=== PATIENT | male | born 1970 | race African-American/Black ===

== ENCOUNTER 2018-07-27 12:43 | Emergency (ER) | payer MEDICAID ==
[~2018-07-27] VITALS: Ht 177.8 cm; Wt 83.9 kg
[2018-07-27 13:27] VITALS: BP 116/83
[2018-07-27] MEDS ORDERED: SODIUM CHLORIDE 0.9% 1,000 ML IV ONE (13:30)
[2018-07-27 14:41] LABS: HEMATOCRIT. 40.5 % (42.0-52.0); HEMOGLOBIN. 13.4 g/dL (14.0-18.0); MEAN CORPUSCULAR HEMOGLOBIN 29.3 pg (28.0-32.0); MEAN CORPUSCULAR VOLUME 88.4 fL (80.0-94.0); MEAN PLATELET VOLUME 7.6 fl (7.4-10.4); PLATELET 564 x1000/uL (130-400); RED BLOOD CELL COUNT 4.58 mill/uL (4.7-6.1); RED CELL DISTRIBUTION WIDTH 12.9 % (11.6-14.6)
[2018-07-27 15:12] LABS: CHLORIDE 107 mEq/L (98-107)
[2018-07-27 15:16] LABS: ETHANOL BLOOD 133 mg/dL
[2018-07-27 15:21] LABS: PLATELET ESTIMATE INCREASED
[2018-07-27 16:24] LABS: *AMPHETAMINES SCREEN URINE NEGATIVE (NEGATIVE); *COCAINE SCREEN URINE NEGATIVE (NEGATIVE); CANNABINOID URINE SCREEN NEGATIVE (NEGATIVE); METHADONE URINE SCREEN NEGATIVE (NEGATIVE); OPIATES URINE SCREEN NEGATIVE (NEGATIVE); PHENCYCLIDINE URINE SCREEN PRESUMTIVE POSITIVE (NEGATIVE)
[2018-07-27 16:25] LABS: *BARBITURATES SCREEN URINE NEGATIVE (NEGATIVE); *BENZODIAZEPINES SCREEN URINE NEGATIVE (NEGATIVE)
== END 2018-07-27 16:00 | disposition left against medical advice (07) ==
LOC: ER 12:56
DX: F10.229 Alcohol dependence with intoxication, unspecified (principal); F15.129 Other stimulant abuse with intoxication, unspecified; R94.31 Abnormal electrocardiogram [ECG] [EKG]; R55 Syncope and collapse; F32.9 Major depressive disorder, single episode, unspecified; E78.00 Pure hypercholesterolemia, unspecified; I10 Essential (primary) hypertension; E11.9 Type 2 diabetes mellitus without complications
CPT/HCPCS: 36415; 71045; 80053; 80305; 80307; 80329; 84484; 85025; 93005; 99284; G0482; J7030